=== PATIENT | female | born 1985 | race Caucasian/White ===

== ENCOUNTER → 2021-12-16 | Outpatient (CLI) | payer OTHER ==
[~2021-12-16] MED LIST: BENTYL 10MG CAP10 MG PO; BUPRENORPHIN-N1 EACH SL; ESTRADIOL1 EA10 TD; PHENERGAN 25 MG25 M1 PO; VANCOMYCIN HCL125 MG PO; ZOFRAN ODT 4 MG4 MG PO; ZOFRAN ODT 4 MG4 MG SL; ZOFRAN ODT4 MG SL; ZOFRAN4 MG PO
[2021-12-16 11:11] LABS: HEMOGLOBIN 14.4 gm/dl (12.3-15.3); RED BLOOD COUNT 5.26 M/UL (4.00-5.10); WHITE BLOOD COUNT 11.2 K/UL (4.5-11.0)
[2021-12-16 11:31] LABS: BUN/CREATININE RATIO 8 (0-10)
== END ==
LOC: LAB 10:39
PROVIDERS: Nurse Practitioner Family
DX: R60.9 Edema, unspecified (principal)
CPT/HCPCS: 36415; 80053; 85025